=== PATIENT | male | born 1950 | race Caucasian/White ===

== ENCOUNTER → 2023-10-18 | Outpatient (CLI) | payer MEDICARE ==
--- NOTE | 2023-10-18 12:25 | US ---
EXAMINATION TYPE: US liver DATE OF EXAM: 10/18/2023 COMPARISON: NONE CLINICAL INDICATION: Male, 73 years old with history of E80.6 OTHER DISORDERS OF BILIRUBIN METABOLISM ; Patient denies any signs or symptoms at this time TECHNIQUE: Multiple sonographic images of the right upper quadrant are obtained. 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 No suspicious acute ultrasound abnormality.
[2023-10-18 16:15] LABS: Albumin 4.4 g/dL (3.8-4.9); Bilirubin, Conjugated 0.37 mg/dL (0.20-0.40); Bilirubin,Unconjugated 1.43 mg/dL (0.20-1.00); Globulin 2.2 g/dL (1.6-3.3); Total Bilirubin 1.8 mg/dL (0.3-1.2); Total Protein 6.6 g/dL (6.2-8.2)
== END | disposition home or self-care (01) ==
LOC: RADUSWWP 07:57
PROVIDERS: ATTEND Surgery Plastic and Reconstructive Surgery
DX: E80.6 Other disorders of bilirubin metabolism (principal)
CPT/HCPCS: 76705; 80076; 82248